=== PATIENT | female | born 1995 | race Caucasian/White ===

== ENCOUNTER 2019-02-01 20:43 | Inpatient (IN) | payer OTHER ==
[2019-02-01 21:13] VITALS: BMI 30.2
[2019-02-01] MEDS ORDERED: Oxytocin 10 UNITS/ML VIAL ONE (22:53)
[2019-02-01] MEDS ORDERED: NS / Oxytocin 40 units/1000ml 1,000 ML IV SCH (23:00)
[2019-02-01] MEDS: Misoprostol 200 MCG TAB ONE (23:14)
--- NOTE | 2019-02-01 23:27 | PDOC.EVN ---
Event Note - Event Note Event Note: Dr. Can asked me to consult on this patient. She is a 23 year old G1 patient who had good PNC at the Clinic. She was seen in clinic today for a routine visit and everything was fine. She presented this evening with abdominal pain and on examination was found to be fully dilated with intact membranes. She is 22 3/7 weeks gestation by good dates. I discussed the situation with her and the baby's father. We discussed that the baby is extremely premature and that all the baby's systems are extremely immature. I asked her if she wanted to hold her baby after delivery, since we were not going to resuscitate due to the extreme prematurity and she said she does want to hold her. I told her the baby may have a heart beat when she is born and she understood this. The baby was born by from compound vertex presentation with some difficulty. There was bruising over her body from her waist to the top of her head. Her HR was ~60 on auscultation. She made no respiratory effort and had no spontaneous movements. We placed her skin to skin with Mom and Dr. Carias with intermittently monitor the HR.
[2019-02-01] MEDS ORDERED: Misoprostol 200 MCG TAB PR PRN (23:57)
[2019-02-02 00:09] LABS: Hemoglobin 13.8 g/dL (12.0-16.0); Mean Corpuscular HGB CONC 32.9 g/dL (32.0-36.0); Mean Corpuscular Hemoglobin 31.3 pg (27.0-31.0); Mean Platelet Volume 7.6 fL (7.4-10.4); Platelet Count 236 thou/uL (130-400); RBC Distribution Width 11.7 % (11.5-14.5); Red Blood Cell (RBC) Count 4.41 mill/uL (4.20-5.40); White Blood Cell (WBC) Count 19.8 thou/uL (4.8-10.8)
[2019-02-02 00:50] LABS: HBSAg Index 0.49 S/CO (0-0.99); Hep B Surf Ag Non-Reactive S/CO (NonReactive); Syphilis Antibody Nonreactive (Nonreactive); Syphilis Antibody Index 0.09 S/CO (<1.00 Non-Reactive)
--- NOTE | 2019-02-02 02:14 | PDOC.LDHP ---
Labor and Delivery H&P Chief complaint: abdominal pain HPI: 23yo G1 at 22.3w EGLana presents with Abdominal pain. Pt reports she has not had BM for 4 days now and believes it is cramps because of that reporting that they do now feel like contractions. No fevers or chills, no transforming factors. During evaluation pt started complaining of the sensation of fluid leaking from vagina and eventually a sensation of solids coming through her vagina reporting that she felt herself and felt a "bubble". Pt reports that she had appointment at clinic earlier that day and that everything was going fine. Of note 2/2 pt early gestational age, records from clinic are not yet received. Grav: 1 Current complications: none Current medications: pre- vitamins Previous surgical history: none Allergies/Adverse Reactions: Allergies Allergy/AdvReac Type Severity Reaction Status Date / Time No Known Allergies Allergy Verified 02/01/19 21:09 Social history: none - Physical Exam Vital signs reviewed and normal: yes General: other (in moderate distress 2/2 abdominal pain) Heart: RRR Lungs: nonlabored breathing Abdomen: other (TTP of bilateral lower quadrants, FH appropriate for EGA. no peritoneal signs) Extremeties: no edema FHT: category 1 [place] contractions every: none - Vaginal Exam cm dilated: 10 Effacement: 100% Station: 1+ - OB Labs Blood type: unknown RH: unknown Antibody Screen: unknown HIV: unknown RPR: unknown HEPSAg: unknown 1 hour GCT: unknown GBS: unknown Urine drug screen: not done - Assessment L&D Assessment: labor - Plan Plan: admit to L&D -: Labor A- Preparations were made for sterile spec exam however on pt feeling sensation of solids progressing through vaginal and after SVE it was evident that pt was in labor. P- admit to L and D -stat consult to [place] -prepare for delivery Addendum - Attending - Attending Attestation Date/Time: 02/03/19 0404 I personally evaluated the patient and discussed the management with Dr Beltran. I agree with the History, Examination, Assessment and Plan documented above with any addition or exceptions noted below.
--- NOTE | 2019-02-02 02:15 | PDOC.OPDEL ---
OB Operative/Delivery Note - Additional Findings/Plan Compilations/Other Findings: Delivering Physician: Dr. Vikas Fernandez, Dr. [place] Carias Attending: Dr. Can Procedure: Spontaneous Vaginal Delivery in labor Anesthesia: none EBL: 400 ml Pre-op Diagnosis: intrauterine in labor Post-op Diagnosis: 1. intrauterine , delivered a non viable Indications: A 23 y/o female G1 presents in active labor. Delivery Note: This is 23yo G1 @ 22.3wks who delivered a non-viable F at 2307 on 02/02/2019. Following an uneventful antepartum course, a F was delivered with some difficulty over an intact perineum with complicated vertex position. Cord clamped and cut and cord blood collected and infant was transferred to mother for skin to skin. HR was noted to be 60 on auscultation. Placenta delivered intact with a 3 vessel cord noted. Fundal massage was performed and the fundus was firm. The cervix and vagina were inspected and found to be free of lacerations. Apgars were 0/0 at 1 & 5 minutes, respectively. Patient tolerated delivery well and was given time in privacy with family and after deemed stable. Of note amniotic fluid was found to be a clear willett-brown color on ROM. Addendum - Attending - Attending Attestation Date/Time: 02/03/19 7004 I personally evaluated the patient and discussed the management with Dr. Fernandez. I was present for the entire delivery process. I agree with the History, Examination, Assessment and Plan documented above with any addition or exceptions noted below.
[2019-02-02] MEDS ORDERED: diphenhydrAMINE 25 MG CAP PO PRN (02:59)
[2019-02-02] MEDS ORDERED: Bisacodyl 10 MG SUPP PR PRN (02:59)
[2019-02-02] MEDS ORDERED: Preparation H Ointment 28 GM TUBE PR PRN (02:59)
[2019-02-02] MEDS ORDERED: Ondansetron PF 4 MG/2 ML Vial IVP PRN (02:59)
[2019-02-02] MEDS ORDERED: Milk Of Magnesia 30 ML UDCUP PO PRN (02:59)
[2019-02-02] MEDS ORDERED: NS / Oxytocin 40 units/1000ml 1,000 ML IV SCH (02:59)
[2019-02-02] MEDS ORDERED: Benzocaine-Menthol 82.5 ML CAN TOP PRN (02:59)
[2019-02-02] MEDS ORDERED: Ibuprofen 800 MG TAB PO PRN (06:00)
[2019-02-02] MEDS ORDERED: Ferrous Sulfate 325 MG TAB PO SCH (08:00)
[2019-02-02 08:01] LABS: Hemoglobin 11.4 g/dL (12.0-16.0); Mean Corpuscular HGB CONC 33.8 g/dL (32.0-36.0); Mean Corpuscular Hemoglobin 32.2 pg (27.0-31.0); Mean Corpuscular Volume 95.2 fL (78.0-98.0); Mean Platelet Volume 7.2 fL (7.4-10.4); Platelet Count 220 thou/uL (130-400); RBC Distribution Width 11.5 % (11.5-14.5); Red Blood Cell (RBC) Count 3.55 mill/uL (4.20-5.40); White Blood Cell (WBC) Count 15.3 thou/uL (4.8-10.8)
[2019-02-02] MEDS ORDERED: Docusate Calcium (SURFAK) 240 MG CAP PO SCH (09:00)
--- NOTE | 2019-02-03 02:26 | DIS ---
DATE OF ADMISSION: 02/01/2019 DATE OF DISCHARGE: 02/02/2019 ADMITTING DIAGNOSIS: Abdominal pain. DISCHARGE DIAGNOSIS: Spontaneous AB, second trimester. PROCEDURE: Previable spontaneous vaginal delivery. CONSULTATIONS: Neonatology. HOSPITAL COURSE: The patient is a 23-year-old G1, P0 female who presented to Labor and Delivery yesterday after not feeling well in the evening. On arrival, the patient reported feeling pressure on her bottom and on exam was noted to have completely dilated and big bulging membranes to the introitus. On ultrasound at that time, the patient's fetus was noted to be vertex and presenting into the vaginal canal. Given her reported gestational age at 22 weeks, there was great concern that the fetus would not be viable and Neonatology was asked to be present at time of delivery for evaluation. The patient underwent a spontaneous vaginal delivery and the fetus was congruent with a 22-week nonviable fetus who was gently cared for and placed on mother's chest. For complete details of delivery, please refer to the delivery note. Placenta delivered spontaneously and the patient has been stable overnight. On day #1, the patient reports the desire that she would like to go home. There were cultures of the placenta. We reviewed her history again up to the event of the delivery. The patient reports that she was feeling bad, thought she was constipated and did not start feeling pain until shortly before arrival. These findings suggest to me that this may be evidence of an incompetent cervix requiring close monitoring at the time of her next with possible prophylactic cerclage. I did discuss my concerns with the patient to instill the need for her to communicate with an [employer] prior to attempting again, so they can come up with a plan that the patient to be amenable to. The patient this morning again expressed desire to be discharged home. 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 PHYSICAL EXAMINATION: VITAL SIGNS: This morning, blood pressure 117/75, heart rate is 75, respiratory rate 16, and temperature 98.8. GENERAL: She does not appear to be in any acute distress. : Fundus is nontender and not palpable any longer. The patient reports the bleeding is negligible. LABORATORY DATA: Lab work available at this point shows blood type of O negative with negative antibody screen. Hepatitis B surface antigen nonreactive and syphilis nonreactive. Group B strep is pending. BP-3 is pending. Urine culture is pending. PLAN: The patient is being discharged to home after receiving RhoGAM with instructions to follow up in 1 week with the clinic where she can follow up with these lab results. Job ID: [id number]
== END 2019-02-02 10:15 | disposition home or self-care (01) | DRG 807 ==
LOC: L&D/OP 20:43 → L&D 22:56
PROVIDERS: ADMIT Obstetrics & Gynecology; ATTEND Obstetrics & Gynecology
PROC: 10E0XZZ Delivery of Products of Conception, External Approach (ICD-10-PCS; principal; 2019-02-01)
DX: O60.12X0 Preterm labor second trimester with preterm delivery second trimester, not applicable or unspecified (principal); Z37.1 Single stillbirth; Z3A.22 22 weeks gestation of pregnancy
CPT/HCPCS: 36415; 85027; 85461; 86780; 86850; 86900; 86901; 87070; 87081; 87086; 87205; 87340; 87480; 87510; 87660; 90384; 96372; 99285; J2590

== ENCOUNTER 2019-02-04 23:44 | Emergency (ER) | payer OTHER | END 2019-02-05 01:48 | disposition home or self-care (01) | LOC: ERS 23:44 | DX: O92.79 Other disorders of lactation (principal); O99.335 Smoking (tobacco) complicating the puerperium; F17.210 Nicotine dependence, cigarettes, uncomplicated | CPT/HCPCS: 99283 ==

== ENCOUNTER 2019-08-23 12:26 | Emergency (ER) | payer OTHER, SELFPAY ==
[2019-08-23 13:40] LABS: #Basophils 0.1 thou/uL (0.0-0.2); #Eosinphils 0.2 thou/uL (0.0-0.7); #Lymphocytes 1.8 thou/uL (1.20-3.40); #Monocytes 0.8 thou/uL (0.11-0.59); #Neutrophils 6.1 thou/uL (1.40-6.50); %Basophils 0.7 % (0.0-1.0); %Eosinophils 1.8 % (0.0-10.0); %Lymphocytes 19.7 % (21.0-51.0); %Monocytes 9.3 % (0.0-10.0); %Neutrophils 68.6 % (42.0-75.0); Hemoglobin 16.3 g/dL (12.0-16.0); Mean Corpuscular HGB CONC 33.9 g/dL (32.0-36.0); Mean Corpuscular Hemoglobin 32.3 pg (27.0-31.0); Mean Corpuscular Volume 95.3 fL (78.0-98.0); Mean Platelet Volume 7.1 fL (7.4-10.4); Platelet Count 277 thou/uL (130-400); RBC Distribution Width 11.1 % (11.5-14.5); Red Blood Cell (RBC) Count 5.03 mill/uL (4.20-5.40); White Blood Cell (WBC) Count 8.9 thou/uL (4.8-10.8)
[2019-08-23 14:11] LABS: ALT (SGPT) 12 U/L (8-55); AST (SGOT) 17 U/L (5-34); Albumin 4.4 g/dL (3.5-5.0); Alkaline Phosphatase 81 U/L (40-110); Anion Gap 11 mmol/L (10-20); BUN (Urea Nitrogen) 8 mg/dL (7.0-18.7); Bilirubin, Total 0.6 mg/dL (0.2-1.2); Calc. Creatinine Clearance 0 mL/min (70-130); Calcium 9.5 mg/dL (7.8-10.44); Carbon Dioxide 27 mmol/L (22-29); Chloride 105 mmol/L (98-107); Estimated GFR-MDRD 82; Globulin 3.2 g/dL (2.4-3.5); Glucose 76 mg/dL (70-105); Lipase 12 U/L (8-78); Protein, Total 7.6 g/dL (6.0-8.3); Sodium 139 mmol/L (136-145)
[2019-08-23 14:14] LABS: Bilirubin Negative (Negative); Blood, Urine 2+ (Negative); Clarity Turbid (Clear); Glucose, Urine (Dipstick) Normal (Negative); Leukocyte Negative Leu/uL (Negative); Nitrite Negative (Negative); Pregnancy Test - Urine (BHCG) Negative (Negative); Pregu Control Background? CLEAR/WHITE (CLR/WHITE); Pregu Control Bar Appear? YES (CONTROL BAR); Protein, Urine (Dipstick) 20 mg/dL (Neg-Trace); Specific Gravity 1.023 (1.002-1.036); Squamous Epithelial 21-50 HPF (0-3); WBC/HPF 0-3 HPF (0-3)
[2019-08-23 14:24] LABS: Bacteria/HPF 2+ HPF (None Seen)
== END 2019-08-23 14:40 | disposition home or self-care (01) ==
LOC: ERS 12:26
DX: N39.0 Urinary tract infection, site not specified (principal); N92.1 Excessive and frequent menstruation with irregular cycle; F17.210 Nicotine dependence, cigarettes, uncomplicated
CPT/HCPCS: 36415; 80053; 81003; 81015; 81025; 83690; 85025; 99284

== ENCOUNTER 2022-11-04 14:55 | Outpatient (CLI) | payer OTHER | END 2022-11-04 14:56 | disposition home or self-care (01) | LOC: BICULT 14:55 | PROVIDERS: ATTEND Obstetrics & Gynecology | DX: N63.10 Unspecified lump in the right breast, unspecified quadrant (principal) ==

== ENCOUNTER 2023-11-28 20:29 | Emergency (ER) | payer OTHER, SELFPAY | END 2023-11-28 21:46 | LOC: ERS 20:29 | DX: Z53.21 Procedure and treatment not carried out due to patient leaving prior to being seen by health care provider (principal) ==